=== PATIENT | male | born 1985 ===

== ENCOUNTER 2016-07-19 14:44 | Emergency (ER) | payer BC ==
[~2016-07-19] VITALS: Ht 182.9 cm; Wt 110.0 kg
[~2016-07-19 14:44] MED LIST: ZITH250T PO
[2016-07-19 14:46] VITALS: BP 141/73; PULSE 89; RESP 12; TEMP 98.1; O2SAT 95
[2016-07-19] MEDS ORDERED: OMEP20TA PO (15:15)
[2016-07-19] MEDS ORDERED: KETO2CRE TOPICAL (15:15)
--- NOTE | 2016-07-19 16:09 | PD ---
HPI Chief Complaint: Complaint Time Seen by Provider: 16:09 Travel History International Travel<30 days: No Contact w/Intl Traveler<30days: No Traveled to known affect area: No History of Present Illness HPI 30-year-old male presents to the emergency department for evaluation of lower back spasms and scrotal pain. The patient states that he has had lower back spasms for the past 2 weeks. Denies any new injury or trauma to his back. States that he had a injury to his back one year ago and occasionally has lower back spasm secondary to this prior injury. States that he has taken Tylenol with minimal improvement of symptoms. The patient states that he began to have scrotal pain today. States that earlier today he had bilateral scrotal pain lasting a few minutes that resolved on its own. States that he is not actually experience any pain at this time. He denies any fever, chills, nausea, vomiting , dysuria, burning with urination, hematuria, abdominal pain, flank pain, numbness or tingling, weakness. The patient states that he saw his PCP this week for evaluation of a lesion he has on his penis, states that he had a full STD panel that was unremarkable but was referred to a urologist. No other complaints. PFSH Past Medical History Medical History: Denies Significant Hx Past Surgical History Surgical History: No Previous Surgery Social History Alcohol Use: No Tobacco Use: No Allergies-Medications (Allergen,Severity, Reaction): Coded Allergies: No Known Allergies (Unverified , 07/19/16) Reported Meds & Prescriptions Reported Meds & Active Scripts Active Naproxen 500 Mg Tab 500 Mg PO BID 7 Days Flexeril (Cyclobenzaprine HCl) 10 Mg Tab 10 Mg PO TID 5 Days Reported Ketoconazole Topical 2% Cream 1 Applic TOPICAL DAILY Omeprazole 20 Mg Tab 20 Mg PO DAILY Review of Systems Except as stated in HPI: all other systems reviewed are Neg Physical Exam Narrative GENERAL: Well-nourished and well-developed pleasant male patient in no acute distress who is nontoxic appearing. SKIN: Warm and dry. HEAD: Normocephalic and atraumatic. EYES: No injection, drainage, or hyphema noted. PERRLA. EOMI. ENT: No nasal drainage noted. Oropharynx is clear. NECK: Supple and the trachea is midline. CARDIOVASCULAR: Regular rate and rhythm. RESPIRATORY: Breath sounds are equal bilaterally with no accessory muscle use, wheezing, rhonchi, or crackles. GASTROINTESTINAL: Abdomen is soft, non-tender, and nondistended. GENITOURINARY: Circumcised. There is a hyperpigmented 1 cm lesion to the distal tip of the penis. Testes descended bilaterally without evidence of rotation. No tenderness or pain along the epididymis. No lesions or erythema. No urethral discharge. Performed in the presence of [place] RN. MUSCULOSKELETAL: No obvious deformities, swelling, cyanosis, or ecchymosis is present throughout the upper and lower extremities. Patient has full range of motion without any signs of neurovascular compromise. BACK: Nontender without any obvious deformities, bony point tenderness, or crepitus noted throughout the thoracic and lumbar vertebrae. NEUROLOGICAL: Awake, alert, and oriented. Normal speech and gait. Cranial nerves are grossly intact. Data Data Last Documented VS Vital Signs Date Time Temp Pulse Resp B/P Pulse Ox O2 Delivery O2 Flow Rate FiO2 07/19/16 17:18 16 07/19/16 14:46 98.1 89 141/73 95 Room Air Orders Urinalysis - C+S If Indicated (07/19/16 16:07) Gc And Chlamydia Pcr (07/19/16 16:07) Ibuprofen (Motrin) (07/19/16 16:15) Methocarbamol (Robaxin) (07/19/16 16:15) Labs Laboratory Tests Test 07/19/16 16:45 Urine Color YELLOW Urine Turbidity CLEAR Urine pH 6.5 Urine Specific [place] 1.030 Urine Protein NEG mg/dL Urine Glucose (UA) NEG mg/dL Urine Ketones NEG mg/dL Urine Occult Blood NEG Urine Nitrite NEG Urine Bilirubin NEG Urine Urobilinogen LESS THAN 2.0 MG/DL Urine Leukocyte Esterase NEG Urine RBC LESS THAN 1 /hpf Urine WBC LESS THAN 1 /hpf Urine Mucus FEW /lpf Microscopic Urinalysis Comment CULT NOT INDICATED MDM Medical Decision Making Medical Screen Exam Complete: Yes Emergency Medical Condition: Yes Differential Diagnosis Muscle spasm versus discogenic pain versus urinary tract infection versus STI Narrative Course 30-year-old male presents to the emergency department for evaluation of back spasms and scrotal pain. Patient is afebrile, vital signs are stable. Physical examination is essentially unremarkable. The patient has no evidence for rotation and his exam is completely unremarkable with the exception of a lesion to the distal tip of his penis. He has been referred to a urologist by his PCP and had an STD panel earlier this week that was unremarkable. We'll do a urinalysis, if this is unremarkable the patient will be discharged to follow- up with his PCP. Patient is given ibuprofen and Robaxin here in the ED for his pain. Urinalysis is unremarkable. GC chlamydia PCR is pending. Patient will be discharged with Flexeril and naproxen. Instructed to follow-up with his PCP and urologist. I discussed the case with my attending physician Dr. Jewell who is aware of the patients history, physical examination findings, and treatment plan. Diagnosis Primary Impression: Muscle spasm Additional Impression: Scrotum pain Referrals: Primary Care Physician Patient Instructions: General Instructions, Muscle Spasm (ED) Additional Instructions: Your urinalysis is unremarkable. Keep your appointment with Urology. Take medications as prescribed with food and a full glass of water. Return to the ED for any acute worsening of symptoms. Med/Other Pt SpecificInfo: Prescription(s) given Scripts Naproxen 500 Mg [id number] Mg PO BID 7 Days Ref 0 Prov:Kamran Jewell MD 07/19/16 Cyclobenzaprine (Flexeril)10 Mg Tab10 Mg PO TID 5 Days Ref 0 Prov:Kamran Jewell MD 07/19/16 Disposition: 01 DISCHARGE HOME Condition: Stable Ruth Gutierrez Jul 19, 2016 16:09
[2016-07-19] MEDS ORDERED: IBUPROFEN 800 MG TAB PO ONE (16:15)
[2016-07-19] MEDS ORDERED: METHOCARBAMOL 500 MG TAB PO ONE (16:15)
[2016-07-19 17:18] VITALS: RESP 16
[2016-07-19 17:26] LABS: BLOOD, URINE NEG (NEG); COMMENT (UR) CULT NOT INDICATED; CULTURE IF INDICATED CULT NOT INDICATED; GLUCOSE,URINE NEG (NEG); KETONE, URINE NEG (NEG); MUCUS URINE FEW /lpf (OCC); NITRITE,URINE NEG (NEG); PH, URINE 6.5 (5.0-8.5); URINE COLOR YELLOW (YELLW/STRAW)
[2016-07-19] MEDS ORDERED: NAPR500T PO (17:31)
[2016-07-19] MEDS ORDERED: CYCL1TAB29 PO (17:31)
[2016-07-19 19:17] LABS: CHLAMYDIA PCR NOT DETECTED (NOT DETECT); NEISSERIA PCR NOT DETECTED (NOT DETECT)
== END 2016-07-19 17:43 | disposition home or self-care (01) ==
LOC: NETRI 14:44
DX: M62.838 Other muscle spasm (principal); N50.82 Scrotal pain
CPT/HCPCS: 81001; 87491; 87591; 99284